=== PATIENT | female | born 1990 | race Caucasian/White ===

== ENCOUNTER 2021-05-14 15:12 | Emergency (ER) | payer OTHER ==
[2021-05-14 15:30] VITALS: BP 116/76; TEMP 97.5; BMI 30.7
[2021-05-14 16:21] LABS: URINE APPEARANCE CLEAR; URINE BILIRUBIN NEGATIVE (NEGATIVE); URINE COLOR YELLOW; URINE GLUCOSE (UA) NEGATIVE (NEGATIVE); URINE KETONE TRACE (NEGATIVE); URINE LEUK ESTERASE NEGATIVE (NEGATIVE); URINE NITRITE NEGATIVE (NEGATIVE); URINE PROTEIN NEGATIVE (NEGATIVE)
[2021-05-14 17:20] LABS: BASO % 0.4 % (0-2.0); EOS % 0.9 % (0-4.5); HEMATOCRIT 37.9 % (32.4-45.2); HEMOGLOBIN 12.9 GM/dL (10.7-15.3); LYMPH % 16.6 % (8-40); MCH 30.9 pg (25.7-33.7); MEAN CELL VOLUME 90.9 fl (80-96); MEAN PLT VOLUME 8.7 fl (7.5-11.1); MONO % 6.6 % (3.8-10.2); NEUT % 75.5 % (42.8-82.8); PLATELET COUNT 239 10^3/uL (134-434); RBC 4.17 M/mm3 (3.60-5.2); RDW 13.5 % (11.6-15.6); WHITE BLOOD COUNT 7.4 K/mm3 (4.0-10.0)
[2021-05-14 17:46] LABS: CALCIUM 9.1 mg/dL (8.5-10.1)
[2021-05-14 17:47] LABS: ALBUMIN 3.4 g/dl (3.4-5.0); BLOOD UREA NITROGEN 6.8 mg/dL (7-18)
[2021-05-14 17:50] LABS: CREATININE 0.6 mg/dL (0.55-1.3)
[2021-05-14 17:51] LABS: BILIRUBIN,TOTAL 1.4 mg/dL (0.2-1); TOT PROT 7.2 g/dl (6.4-8.2)
[2021-05-14 18:57] VITALS: PULSE 86
== END 2021-05-14 18:58 | disposition home or self-care (01) ==
LOC: JER 15:12
DX: Z32.01 Encounter for pregnancy test, result positive (principal)
CPT/HCPCS: 36415; 76815; 80053; 81003; 83690; 84702; 84703; 85025; 86850; 86900; 86901; 87086; 87491; 87591; 99284-25